=== PATIENT | male | born 1960 | race Caucasian/White ===

== ENCOUNTER 2018-08-03 09:42 | Emergency (ER) | payer OTHER ==
[~2018-08-03 09:42] MED LIST: HYDR-3503 PO
[2018-08-03] MEDS ORDERED: ASPIRIN 81 MG CHEW PO ONE (09:45)
--- NOTE | 2018-08-03 09:52 | ER Report ---
History and Physical Time Seen By MD: 09:49 HPI/ROS CHIEF COMPLAINT: Chest pain, shortness of breath, toothache HISTORY OF PRESENT ILLNESS: Patient is a 57-year-old male who was recently treated for a tooth infection with antibiotics but is also been having episodic chest pain along with shortness of breath since that time. He states symptoms began about 10 days ago. Because he has a family history of heart disease that runs strongly in his family was concerned that the toothache may be related to a cardiac issue. So he presents to the emergency department for evaluation. Patient denies any known cardiac history himself. He is a former smoker but continues to chew tobacco. No specific palliative or provoking features. Patient is also been having some burping and swallowing of mucus. No reported history of fever or chills. Pain is reported is currently mild but he is having shortness of breath. REVIEW OF SYSTEMS: Constitutional: No fever, no chills. Eyes: No discharge. ENT: No sore throat. Cardiovascular: Chest pain Respiratory: Shortness of breath Gastrointestinal: No abdominal pain, no vomiting. Genitourinary: No hematuria. Musculoskeletal: No back pain. Skin: No rashes. Neurological: No headache. Allergies: Coded Allergies: No Known Drug Allergies (Unverified , 08/03/18) Home Meds Discontinued Reported Medications Hydrocodone Bit/Acetaminophen (LORTAB 7.5-500 TABLET) 1 Each Tablet, 1 EACH PO Q6H 01/19/13 Past Medical/Surgical History Noncontributory diversus chief complaint Hx Smoking: No Hx Substance Use Disorder: No Hx Alcohol Use: No Constitutional Vital Sign - Last 24 Hours 08/03/18 08/03/18 08/03/18 08/03/18 09:46 09:47 09:48 10:12 Temp 97.1 Pulse 72 81 Resp 16 18 B/P (MAP) 150/93 (112) 151/88 151/88 (109) Pulse Ox 95 90 O2 Delivery Room Air 08/03/18 08/03/18 08/03/18 08/03/18 10:17 10:30 10:45 10:47 Pulse ??? 81 Resp 13 17 B/P (MAP) 115/79 (91) 109/80 (90) Pulse Ox 94 89 08/03/18 08/03/18 08/03/18 08/03/18 11:00 11:15 11:17 11:30 Pulse 69 Resp 6 B/P (MAP) 109/75 (86) 113/77 (89) 107/70 (82) Pulse Ox 96 08/03/18 11:38 Pulse 70 Resp 7 Pulse Ox 88 Physical Exam General Appearance: The patient is alert, has no immediate need for airway protection and no signs of toxicity. Eyes: Pupils equal and round no pallor or injection. ENT, Mouth: Mucous membranes are moist. Respiratory: There are no retractions, lungs are clear to auscultation. Cardiovascular: Regular rate and rhythm. Gastrointestinal: Abdomen is soft and non tender, no masses, bowel sounds normal. Neurological: Awake and alert Skin: Warm and dry, no rashes. Musculoskeletal: Neck is supple non tender. Extremities are nontender, nonswollen and have full range of motion. Medical Decision Making Data Points Result Diagram: 08/03/18 1007 08/03/18 1007 Laboratory Hematology Test 08/03/18 10:07 08/03/18 11:41 Red Blood Count 5.58 M/uL (4.00-5.60) Mean Corpuscular Volume 90.9 fL (80.0-96.0) Mean Corpuscular Hemoglobin 31.1 pg (26.0-33.0) Mean Corpuscular Hemoglobin Concent 34.2 g/dL (32.0-36.0) Red Cell Distribution Width 13.0 % (11.5-14.5) Mean Platelet Volume 6.6 fL (7.2-11.1) Neutrophils (%) (Auto) 64.8 % (39.4-72.5) Lymphocytes (%) (Auto) 25.1 % (17.6-49.6) Monocytes (%) (Auto) 8.2 % (4.1-12.4) Eosinophils (%) (Auto) 1.6 % (0.4-6.7) Basophils (%) (Auto) 0.3 % (0.3-1.4) Nucleated RBC Relative Count (auto) 0.0 /100WBC Neutrophils # (Auto) 4.5 K/uL (2.0-7.4) Lymphocytes # (Auto) 1.8 K/uL (1.3-3.6) Monocytes # (Auto) 0.6 K/uL (0.3-1.0) Eosinophils # (Auto) 0.1 K/uL (0.0-0.5) Basophils # (Auto) 0.0 K/uL (0.0-0.1) Nucleated RBC Absolute Count (auto) 0.00 K/uL Prothrombin Time 12.5 seconds (12.0-14.4) Prothromb Time International Ratio 0.94 Activated Partial Thromboplast Time 31 seconds (23-35) D-Dimer Quantitative (PE/DVT) < 0.27 ug/ml (0-0.50) Sodium Level 138 mmol/L (137-145) Potassium Level 4.2 mmol/L (3.5-5.0) Chloride Level 108 mmol/L (98-107) Carbon Dioxide Level 26 mmol/L (22-30) Blood Urea Nitrogen 13 mg/dl (9-21) Creatinine 1.10 mg/dl (0.66-1.25) Glomerular Filtration Rate Calc > 60.0 Random Glucose 120 mg/dl (75-110) Calcium Level 9.4 mg/dl (8.4-10.2) Total Bilirubin 0.8 mg/dl (0.2-1.3) Aspartate Amino Transf (AST/SGOT) 41 U/L (0-35) Alanine Aminotransferase (ALT/SGPT) 69 U/L (0-56) Alkaline Phosphatase 52 U/L (0-126) B-Type Natriuretic Peptide < 5 pg/ml (0-100) Total Protein 7.0 g/dl (6.3-8.2) Albumin 4.2 g/dl (3.5-5.0) Troponin I < 0.012 ng/ml Chemistry Test 08/03/18 10:07 08/03/18 11:41 White Blood Count 7.0 k/uL (4.5-11.0) Red Blood Count 5.58 M/uL (4.00-5.60) Hemoglobin 17.3 g/dL (14.0-18.0) Hematocrit 50.7 % (42.0-52.0) Mean Corpuscular Volume 90.9 fL (80.0-96.0) Mean Corpuscular Hemoglobin 31.1 pg (26.0-33.0) Mean Corpuscular Hemoglobin Concent 34.2 g/dL (32.0-36.0) Red Cell Distribution Width 13.0 % (11.5-14.5) Platelet Count 217 K/uL (150-450) Mean Platelet Volume 6.6 fL (7.2-11.1) Neutrophils (%) (Auto) 64.8 % (39.4-72.5) Lymphocytes (%) (Auto) 25.1 % (17.6-49.6) Monocytes (%) (Auto) 8.2 % (4.1-12.4) Eosinophils (%) (Auto) 1.6 % (0.4-6.7) Basophils (%) (Auto) 0.3 % (0.3-1.4) Nucleated RBC Relative Count (auto) 0.0 /100WBC Neutrophils # (Auto) 4.5 K/uL (2.0-7.4) Lymphocytes # (Auto) 1.8 K/uL (1.3-3.6) Monocytes # (Auto) 0.6 K/uL (0.3-1.0) Eosinophils # (Auto) 0.1 K/uL (0.0-0.5) Basophils # (Auto) 0.0 K/uL (0.0-0.1) Nucleated RBC Absolute Count (auto) 0.00 K/uL Prothrombin Time 12.5 seconds (12.0-14.4) Prothromb Time International Ratio 0.94 Activated Partial Thromboplast Time 31 seconds (23-35) D-Dimer Quantitative (PE/DVT) < 0.27 ug/ml (0-0.50) Glomerular Filtration Rate Calc > 60.0 Calcium Level 9.4 mg/dl (8.4-10.2) Total Bilirubin 0.8 mg/dl (0.2-1.3) Aspartate Amino Transf (AST/SGOT) 41 U/L (0-35) Alanine Aminotransferase (ALT/SGPT) 69 U/L (0-56) Alkaline Phosphatase 52 U/L (0-126) B-Type Natriuretic Peptide < 5 pg/ml (0-100) Total Protein 7.0 g/dl (6.3-8.2) Albumin 4.2 g/dl (3.5-5.0) Troponin I < 0.012 ng/ml Coagulation Test 08/03/18 10:07 Prothrombin Time 12.5 seconds Prothromb Time International Ratio 0.94 Activated Partial Thromboplast Time 31 seconds D-Dimer Quantitative (PE/DVT) < 0.27 ug/ml EKG/Imaging EKG Interpretation EKG shows normal sinus rhythm with sinus arrhythmia and no significant ST segment or T-wave abnormalities. Monitor Interpretation: Normal Sinus Rhythm Imaging FACILITY: [facility] - [place] PATIENT NAME: Alphonse Cohen : 1960 MR: [id number] V: [id number] EXAM DATE: [id number] ORDERING PHYSICIAN: BREN BROOKS TECHNOLOGIST: Location: [facility] Patient: Alphonse Cohen : 1960 Visit/Account:[id number] Date of Sevice: 08/03/2018 Exam type: CHEST SINGLE AP History: Chest Pain Comparison: None. Findings: The lungs are free of acute effusions, infiltrates or edema. There is no evidence of a pneumothorax or pneumomediastinum. The cardiac silhouette appears normal. There suggestion of a small hiatal hernia IMPRESSION: 1. No acute cardiopulmonary process is seen Report Dictated By: Lynne Pyle MD at 08/03/2018 10:47 AM Report E-Signed By: Lynne Pyle MD at 08/03/2018 10:48 AM WSN:[id number] ED Course/Re-evaluation ED Course 08/03/2018 9:52:18 am plan at this time will be cardiac workup. We will check d-dimer, chest x-ray troponin. We'll give the patient aspirin at this time. Decision to Disposition Date: Aug 03, 2018 Decision to Disposition Time: 12:17 Depart Departure Latest Vital Signs Vital Signs Date Time Temp Pulse Resp B/P (MAP) Pulse Ox O2 Delivery O2 Flow Rate FiO2 08/03/18 11:38 70 7 88 08/03/18 11:30 107/70 (82) 08/03/18 09:47 97.1 Room Air Impression: Primary Impression: Non-cardiac chest pain Additional Impression: Toothache Condition: Improved Disposition: HOME OR SELF-CARE New Scripts Clindamycin Hcl (CLINDAMYCIN HCL) 300 Mg Capsule 300 MG PO Q6H, #40 CAPSULE 0 Refills Prov: BREN BROOKS MD 08/03/18 Patient Instructions: Noncardiac Chest Pain (ED), Toothache (ED) Problem Qualifiers BREN BROOKS MD Aug 03, 2018 09:52
--- NOTE | 2018-08-03 10:03 | EKG ---
FACILITY: [facility] - [place] PATIENT NAME: HERO CAST : [id number] MR: [id number] V: [id number] EXAM DATE: ORDERING PHYSICIAN: BREN BROOKS TECHNOLOGIST: TONY Test Reason : CP Blood Pressure : / mmHG Vent. Rate : 074 BPM Atrial Rate : 074 BPM P-R Int : 162 ms QRS Dur : 110 ms QT Int : 370 ms P-R-T Axes : 046 -70 041 degrees QTc Int : 410 ms Normal sinus rhythm with sinus arrhythmia Left anterior fascicular block Abnormal ECG No previous ECGs available Confirmed by Jose Ceollo ([id number]) on 08/03/2018 9:07:28 PM Referred By: CECILIA Confirmed By:Jose Tillman
[2018-08-03 10:14] LABS: PLATELET COUNT, AUTOMATED 217 K/uL (150-450)
[2018-08-03 10:23] LABS: INR 0.94
--- NOTE | 2018-08-03 10:54 | RADIOLOGY IMAGING REPORT ---
FACILITY: [facility] PATIENT NAME: Alphonse Cohen : 1960 MR: [id number] V: [id number] EXAM DATE: ORDERING PHYSICIAN: BREN BROOKS TECHNOLOGIST: Location: [facility] [place] Patient: Alphonse Cohen : 1960 Visit/Account:[id number] Date of Sevice: 08/03/2018 Exam type: CHEST SINGLE AP History: Chest Pain Comparison: None. Findings: The lungs are free of acute effusions, infiltrates or edema. There is no evidence of a pneumothorax or pneumomediastinum. The cardiac silhouette appears normal. There suggestion of a small hiatal her varinder IMPRESSION: 1. No acute cardiopulmonary process is seen Report Dictated By: Lynne Pyle MD at 08/03/2018 10:47 AM Report E-Signed By: Lynne Pyle MD at 08/03/2018 10:48 AM WSN:[email or web address]
[2018-08-03 12:15] VITALS: BP 128/37
[2018-08-03] MEDS ORDERED: CLIN300C99 PO (12:19)
== END 2018-08-03 12:29 | disposition home or self-care (01) ==
LOC: ER 10:16
DX: R07.89 Other chest pain (principal)
CPT/HCPCS: 36415; 71045; 82040; 82247; 82310; 82374; 82435; 82565; 82947; 83880; 84075; 84132; 84155; 84295; 84450; 84460; 84484; 84520; 85025; 85379; 85610; 85730; 93005; 99283

== ENCOUNTER → 2018-08-31 | Outpatient (CLI) | payer OTHER ==
[~2018-08-31] MED LIST changes: +CLIN300C99 PO; +IOPAMIDOL 76% 100 ML INFUS BTL 100 ML ONE
--- NOTE | 2018-08-31 14:52 | RADIOLOGY IMAGING REPORT ---
FACILITY: [facility] - [place] PATIENT NAME: Alphonse Cohen : 1960 MR: [id number] V: [id number] EXAM DATE: ORDERING PHYSICIAN: AUBREY PATE TECHNOLOGIST: Location: [facility] Patient: Alphonse Cohen : 1960 Visit/Account:[id number] Date of Sevice: 08/31/2018 EXAMINATION: CT neck with IV contrast HISTORY: Neck mass. TECHNIQUE: Axial soft tissue neck CT with IV contrast. Sagittal and coronal reformats. One of the following dose optimization techniques was utilized in the performance of this exam: Autom ated exposure control; adjustment of the mA and/or kV according to the patient's size; or use of an i terative reconstruction technique. Specific details can be referenced in the facility's radiology C T exam operational policy. CONTRAST: 85 mL of IV [id number] COMPARISON: None available. FINDINGS: Masses/lesions: Palpable marker overlying the left submandibular gland. Underlying the palpable mar ker there is a small submandibular lymph node measuring 1.5 x 0.8 cm. The adjacent submandibular gla nd is within normal limits. Airway: Negative. Lymph nodes: Otherwise negative. Vessels: Mild calcified plaque in the carotid bulbs. Musculoskeletal / Body wall: Multilevel degenerative disc disease and facet hypertrophy in the cervic al spine. Visualized orbits / brain / paranasal sinuses: Moderate mucosal thickening in the left maxillary sinu s. Leftward nasal septal deviation. Partially opacified left mastoid air cells. Mild mucosal thick ening in the left sphenoid sinus. Upper chest: Mild emphysema in the upper lungs. IMPRESSION: 1. Small submandibular lymph node adjacent to the left submandibular gland measuring 1.5 x 0.8 cm. The adjacent submandibular gland is within normal limits. 2. Otherwise no suspicious mass or lymphadenopathy in the neck. 3. Multilevel degenerative disc disease and facet hypertrophy in the cervical spine. 4. Mild emphysema in the upper lungs. Report Dictated By: Scott Harris MD at 08/31/2018 2:40 PM Report E-Signed By: Scott Harris MD at 08/31/2018 2:45 PM WSN:[id number]
== END ==
LOC: CT 04:10
PROVIDERS: ATTEND Otolaryngology
DX: M47.892 Other spondylosis, cervical region (principal); J43.8 Other emphysema; R59.0 Localized enlarged lymph nodes
CPT/HCPCS: 70491; Q9967